=== PATIENT | female | born 1970 | race Caucasian/White ===

== ENCOUNTER 2018-09-13 08:05 | Emergency (ER) | payer OTHER ==
[~2018-09-13] VITALS: Ht 165.1 cm; Wt 82.1 kg
[~2018-09-13 08:05] MED LIST: NORCO 5-325 TA1 EACH PO; PROZAC40 MG PO; VITAMIN D1000 UNI1 PO
== END 2018-09-13 10:28 | disposition home or self-care (01) ==
LOC: ED 08:05
DX: M79.602 Pain in left arm (principal); W18.30XA Fall on same level, unspecified, initial encounter; F17.200 Nicotine dependence, unspecified, uncomplicated; Z79.899 Other long term (current) drug therapy
CPT/HCPCS: 73030; 73080; 73090; 99283-25

== ENCOUNTER 2023-05-22 19:01 | Emergency (ER) | payer OTHER ==
[~2023-05-22] VITALS: Ht 165.1 cm; Wt 86.2 kg
[2023-05-22] MEDS ORDERED: SPRINTEC1 EACH PO (19:21)
[2023-05-22] MEDS ORDERED: OMEPRAZOLE20 MG PO (19:22)
[2023-05-22 20:30] VITALS: BP 154/100
== END 2023-05-22 20:30 | disposition home or self-care (01) ==
LOC: ED 19:01
DX: S80.02XA Contusion of left knee, initial encounter (principal); S80.212A Abrasion, left knee, initial encounter; F17.200 Nicotine dependence, unspecified, uncomplicated; W18.09XA Striking against other object with subsequent fall, initial encounter; Z79.899 Other long term (current) drug therapy; Z23 Encounter for immunization
CPT/HCPCS: 73560; 90715; A9270

== ENCOUNTER 2024-03-05 09:06 | Emergency (ER) | payer OTHER ==
[~2024-03-05] VITALS: Ht 165.1 cm; Wt 97.1 kg
[2024-03-05] MEDS ORDERED: ACETAMINOPHEN 500 MG TAB PO ONE (09:30)
[2024-03-05 10:43] VITALS: BP 180/90
== END 2024-03-05 10:43 | disposition home or self-care (01) ==
LOC: ED 09:06
DX: M75.31 Calcific tendinitis of right shoulder (principal); W18.2XXA Fall in (into) shower or empty bathtub, initial encounter; F17.200 Nicotine dependence, unspecified, uncomplicated; Z79.899 Other long term (current) drug therapy
CPT/HCPCS: 73000; 73060; 73090; 73560; 99283; A9270

== ENCOUNTER 2024-08-01 16:07 | Emergency (ER) | payer OTHER ==
[~2024-08-01] VITALS: Ht 165.1 cm; Wt 93.0 kg
[~2024-08-01 16:07] MED LIST changes: +AMOX TR-K CLV1 EAC1 PO; +AZITHROMYCIN250 MG PO; +BENZONATATE100 MG PO; +CEFPODOXIME PR200 MG PO; +FLUOXETINE HCL20 MG PO; +FLUOXETINE HCL40 MG PO; +MULTI VITAMIN1 EACH PO; +OMEPRAZOLE20 MG PO; +PREDNISONE20 MG PO; +SPRINTEC1 EACH PO
[2024-08-01] MEDS ORDERED: DIPHTH,PERTUSS(ACELL),TET VAC 0.5 ML SYRINGE IM ONE (17:00)
[2024-08-01] MEDS ORDERED: AMOX TR-K CLV1 EAC1 PO (18:22)
[2024-08-01 18:29] VITALS: BP 165/105
[2024-08-01] MEDS ORDERED: AMOXICILLIN/CLAVULANATE K 875 MG TAB PO ONE (18:30)
== END 2024-08-01 18:29 | disposition home or self-care (01) ==
LOC: ED 16:07
DX: S51.851A Open bite of right forearm, initial encounter (principal); Z23 Encounter for immunization; W54.0XXA Bitten by dog, initial encounter
CPT/HCPCS: 90471; 90715; 99283-25

== ENCOUNTER 2025-06-26 07:22 | Day surgery (SDC) | payer OTHER ==
[~2025-06-26] VITALS: Ht 162.6 cm; Wt 91.0 kg
[~2025-06-26 07:22] MED LIST changes: +ASHWAGANDHA500 MG PO; +CALCIUM 600+D1 EAC5 PO; +IBLOOD GLUCOSE TEST STRIP 1 EA TEST VI PRN; +LACTATED RINGER'S 1,000 ML IV SCH; +LIDOCAINE HCL 1% 5 ML SDV INJ ONE; +LISINOPRIL10 MG PO; +MAGNESIUM200 MG PO; +MEGA 3-6-9 SO1233 MG PO; +PHENTERMINE H37.5 MG PO; +PROBIOTIC250 MG PO; +VITAMIN C500 M5 PO; +VITAMIN D3125 MC2 PO; +WELLBUTRIN SR150 MG PO
[2025-06-26 08:01] VITALS: BP 133/86
[2025-06-26] MEDS ORDERED: LIDOCAINE HCL 2% 5 ML SDV ONE (09:04)
[2025-06-26] MEDS ORDERED: GLUCAGON,HUMAN RECOMBINANT 1 MG/ML VIAL ONE (09:11)
--- NOTE | 2025-06-26 09:38 | NUR ---
06/26/25 0938 Agnes Hartley 0938-PATIENT ARRIVED TO PACU ON 6L MASK RR EVEN NONAROUSABLE LAYING LEFT LATERAL ABDOMEN SOFT. IVF INFUSING. SR HR 70'S.
[2025-06-26 10:17] VITALS: BP 149/82
--- NOTE | 2025-06-26 11:07 | OR ---
[facility] [address], [place] [address] Signed DATE OF OPERATION: 06/26/2025 SURGEON: Ellis Shepherd DO PREOPERATIVE DIAGNOSIS: Colon cancer screening. POSTOPERATIVE DIAGNOSIS: Colon cancer screening with diverticulosis. PROCEDURE PERFORMED: Colonoscopy. ANESTHESIA: IV sedation. ESTIMATED BLOOD LOSS: None. DRAINS: None. COMPLICATION: None. DESCRIPTION OF PROCEDURE: The patient was brought to the GI lab, placed in the supine position. After induction of IV sedation, the patient was placed in the left lateral position, padded to the satisfaction of anesthesia. An Olympus video colonoscope was then introduced into the rectum and while insufflating and under direct visualization the scope was advanced to the rectosigmoid, sigmoid colon, descending colon, transverse colon, ascending colon and into the cecum. Colon was then insufflated and had no intrinsic or extrinsic masses noted. The scope was then brought back past the hepatic flexure and the transverse colon. No intrinsic or extrinsic masses were noted. No lesions or ulceration noted. Scope was brought back to the splenic flexure into the descending colon. No intrinsic or extrinsic masses, lesions, or ulcerations were appreciated. The scope was brought back into the sigmoid colon. Some scattered sigmoid diverticula were noted. No evidence of diverticulitis was present. No other intrinsic or extrinsic masses were noted. Scope was then brought back into the rectosigmoid. Some scattered diverticula were noted as well. No evidence of diverticulitis. The rectum was Electronically Signed By: ELLIS SHEPHERD DO 06/26/25 1107 PATIENT NAME: RENE BARRIENTOS OPERATIVE REPORT DATE OF : 72 REPORT #: [id number] PHYSICIAN: ELLIS SHEPHERD DO PCP: FELICITAS JOHNSON PA-C REPORT IS CONFIDENTIAL AND NOT TO BE RELEASED WITHOUT AUTHORIZATION [address] [place], [place] [address] Signed unremarkable. Scope was withdrawn. The patient tolerated the procedure well and taken to the recovery room in satisfactory condition. She should be able to have a repeat examination in 7 to 10 years or sooner if any problems. DO DEREK Tubbs/BIJAN /[id number] Copies: ~ Electronically Signed By: ELLIS SHEPHERD DO 06/26/25 1107 PATIENT NAME: RENE BARRIENTOS OPERATIVE REPORT DATE OF : 72 REPORT #: [id number] PHYSICIAN: ELLIS SHEPHERD DO PCP: FELICITAS JOHNSON PA-C REPORT IS CONFIDENTIAL AND NOT TO BE RELEASED WITHOUT AUTHORIZATION
== END 2025-06-26 10:25 | disposition home or self-care (01) ==
LOC: DS 07:22
PROVIDERS: ATTEND Surgery
PROC: 0DJD8ZZ Inspection of Lower Intestinal Tract, Via Natural or Artificial Opening Endoscopic (ICD-10-PCS; principal; 2025-06-26 09:00)
DX: Z12.11 Encounter for screening for malignant neoplasm of colon (principal); K57.30 Diverticulosis of large intestine without perforation or abscess without bleeding; E78.1 Pure hyperglyceridemia; N39.3 Stress incontinence (female) (male); K21.9 Gastro-esophageal reflux disease without esophagitis; E66.9 Obesity, unspecified; Z68.38 Body mass index [BMI] 38.0-38.9, adult; Z80.0 Family history of malignant neoplasm of digestive organs; Z79.3 Long term (current) use of hormonal contraceptives; Z79.899 Other long term (current) drug therapy; Z88.8 Allergy status to other drugs, medicaments and biological substances
CPT/HCPCS: 00812; J1610; J2003; J2704